=== PATIENT | male | born 1980 | race African-American/Black ===

== ENCOUNTER 2018-11-17 04:44 | Emergency (ER) | payer SELFPAY ==
[2018-11-17 05:23] VITALS: BMI 25.8
[2018-11-17] MEDS ORDERED: SODIUM CHLORIDE 1,000 ML IV STA (05:32)
[2018-11-17] MEDS ORDERED: ONDANSETRON 4 MG/2 ML VIAL IVPUSH ONE (05:32)
[2018-11-17] MEDS ORDERED: ACETAMINOPHEN 1000 MG/100 ML VIAL (NON FORMULARY) IVPB ONE (05:33)
[2018-11-17] MEDS ORDERED: FAMOTIDINE 20 MG/50 ML IVPB 20 MG/50 ML MG IVPB ONE ×2 (05:33→05:50)
[2018-11-17] MEDS ORDERED: MAG HYDROX/AL HYDROX/SIMETH -MYLANTA- ORAL SUSPENSION PO ONE (05:34)
--- NOTE | 2018-11-17 05:43 | PDOC ---
History of Present Illness - General Chief Complaint: Pain Stated Complaint: ABD PAIN Time Seen by Provider: 11/17/18 05:22 History Source: Patient Exam Limitations: No Limitations - History of Present Illness Initial Comments: 37 yo m w a hx of GERD presents to the ER with intense LUQ abdominal pain associated with nausea and what he describes as black vomiting and diarrhea. he states that he felt like something was expanding in his stomach to the point where the pain was too much and he felt compelled to vomit. He reports that the pain does not radiate but just lingers in the LUQ. He says it is a sharp feeling that feels hot. He rates the pain as 8/10. He says he has been experiencing black diarrhea for nearly a month now but he came into the ED today because he was in so much pain and discomfort. He denies any recent fevers, chills, infections, chest pain, SOB, difficulty breathing, headache, blurry vision, dysuria, frequency, urgency, weakness, numbness, tingling or chills. PCP: None PSH: None reported Social Hx: Smokes 6 cigarettes a day. Drinks recreationally, victorino other substance usage. Allergies: NKA, NKDA Past History - Past Medical History Allergies/Adverse Reactions: Allergies Allergy/AdvReac Type Severity Reaction Status Date / Time No Known Allergies Allergy Verified 11/17/18 05:23 Home Medications: Ambulatory Orders NK [No Known Home Medication] 01/04/15 - Suicide/Smoking/Psychosocial Hx Smoking History: Current every day smoker Have you smoked in the past 12 months: Yes Number of Cigarettes Smoked Daily: 6 Information on smoking cessation initiated: No Hx Alcohol Use: Yes (Occasional) Drug/Substance Use Hx: No Substance Use Type: Alcohol Review of Systems - Review of Systems Able to Perform ROS?: Yes Comments:: CONSTITUTIONAL: Absent: fever, no chills, no fatigue EYES: Absent: visual changes ENT: Absent: ear pain, no sore throat CARDIOVASCULAR: Absent: chest pain, no palpitations RESPIRATORY: Absent: cough, no SOB GI: Present: Abdominal pain, nausea, vomiting, diarrhea Absent: no constipation GENITOURINARY: Absent: dysuria, no frequency, no hematuria MUSKULOSKELETAL: Absent: back pain, no arthralgia, no myalgia SKIN: Absent: rash NEURO: Absent: headache *Physical Exam - Vital Signs Last Vital Signs Temp Pulse Resp BP Pulse Ox 97.9 F 76 19 107/66 100 11/17/18 04:44 11/17/18 04:44 11/17/18 04:44 11/17/18 04:44 11/17/18 04:44 - Physical Exam Comments: GENERAL: Well-appearing, well-nourished. No apparent distress. HEENT: Normocephalic, atraumatic. PERRL, EOM intact. CARDIOVASCULAR: Normal S1, S2. Regular rate and rhythm. PULMONARY: No evidence of respiratory distress. Lungs clear to auscultation bilaterally. No wheezing, rales or rhonchi. ABDOMEN: Hyperactive bowel sounds. there is TTP in the LUQ. Abdomen is still soft and non -distended. EXTREMITIES: Normal ROM in all four extremities. No gross deformities. SKIN: Warm, dry. No rash NEUROLOGICAL: No focal neurological deficits. Rectal Exam: positive: normal rectal tone, heme positive stool, hemorrhoids, other (Significant diffuse rectal/anal tags vs hemorrhoids, vs warts). negative : heme negative stool, normal exam, decreased tone Moderate Sedation - Procedure Monitoring Vital Signs: Procedure Monitoring Vital Signs Temperature 97.9 F 11/17/18 04:44 Pulse Rate 76 11/17/18 04:44 Respiratory Rate 19 11/17/18 04:44 Blood Pressure 107/66 11/17/18 04:44 O2 Sat by Pulse Oximetry (%) 100 11/17/18 04:44 ED Treatment Course - LABORATORY CBC & Chemistry Diagram: 11/17/18 05:46 11/17/18 05:46 - RADIOLOGY Radiology Studies Ordered: Category Date Time Status CHEST - PA [RAD] Stat Radiology 11/17/18 05:41 Ordered KUB (KID UR & BLAD) [RAD] Stat Radiology 11/17/18 05:41 Ordered Medical Decision Making - Medical Decision Making 37 yo m w a hx of GERD presents to the ER with intense LUQ abdominal pain associated with nausea and what he describes as black vomiting and diarrhea. he states that he felt like something was expanding in his stomach to the point where the pain was too much and he felt compelled to vomit. He reports that the pain does not radiate but just lingers in the LUQ. He says it is a sharp feeling that feels hot. He rates the pain as 8/10. He says he has been experiencing black diarrhea for nearly a month now but he came into the ED today because he was in so much pain and discomfort. - VSS DDx IBNLT: gastroenteritis vs food poisoning, pancreatitis, upper vs lower GI bleed, crohns vs UC Plan: Labs, Urine, EKG, X-rays, +/- CTAP, analgesia, supportive treatment, heme occult, re-assess. Rectal exam: Significant tequila anal disease. Many warts vs hemorrhoids vs skin tags vs cauliflower like lesions. Stool is black in appearance. Heme occult cancelled because the specimen was "" - Nonetheless - the stool was indeed black in appearance. Will obtain CTAP. - Patient will be signed out to the day team. *DC/Admit/Observation/Transfer Diagnosis at time of Disposition: Abdominal pain - Discharge Dispostion Condition at time of disposition: Fair - Referrals Referrals: [facility] [place] [facility] at [place] [Provider Group] Alexis Martinez MD [Staff Physician] - - Patient Instructions - Post Discharge Activity
[2018-11-17] MEDS ORDERED: ACETAMINOPHEN INJECTION 100 ML IVPB ONE (05:50)
[2018-11-17] MEDS ORDERED: ONDANSETRON 4 MG/2 ML VIAL ONE (05:50)
[2018-11-17] MEDS ORDERED: MAG HYDROX/AL HYDROX/SIMETH 30 ML UNIT-DOSE CUP ONE (05:50)
[2018-11-17 05:52] LABS: BASO % 0.3 % (0-2.0); EOS % 2.1 % (0-4.5); HEMATOCRIT 38.8 % (35.4-49); HEMOGLOBIN 13.5 GM/dL (11.7-16.9); LYMPH % 32.6 % (8-40); MCH 29.5 pg (25.7-33.7); MCHC 34.9 g/dl (32.0-35.9); MEAN CELL VOLUME 84.4 fl (80-96); PLATELET COUNT 249 K/MM3 (134-434); RBC 4.59 M/mm3 (4.00-5.60); RDW 13.8 % (11.9-15.9); WHITE BLOOD COUNT 4.1 K/mm3 (4.0-10.0)
--- NOTE | 2018-11-17 06:19 | PDOC ---
Attending Attestation - Resident Resident Name: Bethel Caldwell - ED Attending Attestation I have performed the following: I have examined & evaluated the patient, The case was reviewed & discussed with the resident, I agree w/resident's findings & plan, Exceptions are as noted - HPI HPI: 11/17/18 06:19 37 yo male with h/o n/v and dark stool. h/o GERD hasnt had endoscopy in the past. has been happening for one month intermittently. here today because episode bad and co upper abd pain. does use thc, no f/c . no mod factors. denies feeling lightheaded. no f/c reports dark black stool. denies peptobismol, or maalox. 11/17/18 07:00 11/17/18 07:03 - Physicial Exam PE: 11/17/18 07:04 awake alert lungs clear bilaterally heart rrr no mrg abd soft mild luq, epigastric ttp. no rebound no guarding. rectal with recta skin tags/ warts. skin warm and dry. - Medical Decision Making 11/17/18 07:04 differential anemia, gi bleed. peptic ulcer. disease. plan cbc lytes ct a/p. pt may require admission obs for serial h/h h/ h stable protonix given. will see GI on admission. ct a/p pending signed out to oncoming attending dr soto. Heart Score/ECG Review #1 General ECG Interpretation: Sinus Rhythm, Normal Rate (66), Normal Intervals, No acute ischemic changes
[2018-11-17 06:25] LABS: ALBUMIN 3.9 g/dl (3.4-5.0); ALK PHOS 68 U/L (45-117); ANION GAP 5 MMOL/L (8-16); BILIRUBIN,TOTAL 0.4 mg/dL (0.2-1); BLOOD UREA NITROGEN 10 mg/dL (7-18); CHLORIDE 106 mmol/L (98-107); CO2 30 mmol/L (21-32); CREATININE 0.7 mg/dL (0.55-1.3); GLUCOSE,RANDOM 104 mg/dL (74-106); LIPASE 170 U/L (73-393); POTASSIUM 3.6 mmol/L (3.5-5.1); SGOT/AST 19 U/L (15-37); SGPT/ALT 24 U/L (13-61); SODIUM 142 mmol/L (136-145)
[2018-11-17] MEDS ORDERED: morphine CARPU-JECT 4 MG/1 ML DISP.SYRIN IVPUSH ONE (07:07)
[2018-11-17] MEDS ORDERED: morphine SULFATE 4 MG/ML VIAL ONE (07:34)
--- NOTE | 2018-11-17 08:03 | PDOC ---
*Physical Exam - Vital Signs Last Vital Signs Temp Pulse Resp BP Pulse Ox 97.9 F 76 19 107/66 100 11/17/18 04:44 11/17/18 04:44 11/17/18 04:44 11/17/18 04:44 11/17/18 04:44 - Physical Exam Comments: 11/17/18 08:00 Patient admits to symptoms on/off for over a month, usually self remitting after a day and after pepcid and marijuana. He continues to feel nauseous with LUQ abd pain. CT abd/pelvis w cont shows minimally thickened descending and sigmoid colon possibly indicative of colitis, however there is no leukocytosis, left shift anemia or cmp abnormality. stool occult resent will reassess after mylanta, famotidine, iv tylenol. Gastrointestinal/Abdominal: positive: Normal Bowel Sounds, Tender (LUQ), Flat, Soft. negative: Guarding, Mass Rectal Exam: positive: heme negative stool, normal rectal tone, other (skin tags. empty vault) ED Treatment Course - LABORATORY CBC & Chemistry Diagram: 11/17/18 05:46 11/17/18 05:46 - ADDITIONAL ORDERS Additional order review: Laboratory Results 11/17/18 11/17/18 06:05 05:46 Sodium 142 Potassium 3.6 Chloride 106 Carbon Dioxide 30 Anion Gap 5 L BUN 10 Creatinine 0.7 Creat Clearance w eGFR > 60 Random Glucose 104 Calcium 9.0 Total Bilirubin 0.4 AST 19 ALT 24 Alkaline Phosphatase 68 C-Reactive Protein 0.4 H Total Protein 7.0 Albumin 3.9 Lipase 170 Stool Occult Blood Cancelled 11/17/18 05:46 RBC 4.59 MCV 84.4 MCHC 34.9 RDW 13.8 MPV 7.0 L Neutrophils % 60.0 Lymphocytes % 32.6 D Monocytes % 5.0 Eosinophils % 2.1 D Basophils % 0.3 - Medications Given in the ED: ED Medications Discontinued Medications Generic Name Dose Route Start Last Admin Trade Name Freq PRN Reason Stop Dose Admin Acetaminophen 1,000 mg 11/17/18 05:33 11/17/18 06:01 Ofirmev Injection - IVPB 11/17/18 05:34 1,000 mg ONCE ONE Administration Al Hydroxide/Mg Hydroxide 30 ml 11/17/18 05:34 11/17/18 06:01 Mylanta Suspension - PO 11/17/18 05:35 30 ml ONCE ONE Administration Sodium Chloride 1,000 mls @ 1,000 mls/hr 11/17/18 05:32 11/17/18 06:00 Normal Saline - IV 11/17/18 06:31 1,000 mls/hr ASDIR STA Administration Famotidine/Sodium Chloride 20 mg in 50 mls @ 100 mls/hr 11/17/18 05:33 06:01 Pepcid 20 Mg Premixed Ivpb - IVPB 11/17/18 06:02 100 mls/hr ONCE ONE Administration Morphine Sulfate 4 mg 11/17/18 07:07 11/17/18 07:37 Morphine Injection - IVPUSH 11/17/18 07:08 4 mg ONCE ONE Administration Ondansetron HCl 4 mg 11/17/18 05:32 11/17/18 06:01 Zofran Injection IVPUSH 11/17/18 05:33 4 mg ONCE ONE Administration *DC/Admit/Observation/Transfer Diagnosis at time of Disposition: Abdominal pain Qualifiers: Abdominal location: left upper quadrant Qualified Code(s): R10.12 - Left upper quadrant pain GERD (gastroesophageal reflux disease) Qualifiers: Esophagitis presence: esophagitis presence not specified Qualified Code(s): K21.9 - Gastro-esophageal reflux disease without esophagitis - Discharge Dispostion Disposition: HOME Condition at time of disposition: Stable Decision to Admit order: No - Prescriptions Prescriptions: Mag Hydrox/Al Hydrox/Simeth [Mylanta *Suspension*] 30 ml PO Q6H #20 cup Pantoprazole Sodium [Protonix] 40 mg PO DAILY #14 tablet.dr - Referrals Ref[place]: [facility] [place] [facility] [place] [Provider Group] Alexis Martinez MD [Staff Physician] - - Patient Instructions Additional Instructions: Your abdominal pain is likely caused by reflux since your CT scan of abdomen/ pelvis was negative, stool was negative for blood and pain was relieved by medications that treat reflux/gastritis. We prescribed you 2 medications, please pick them up form the pharmacy: Protonix: take one a day Mylanta: take every 6 hours if needed You can take over the counter tylenol for pain as needed WE advise your to eat less fast food and eat more fiber rich food like fruit, vegetables and whole grain. In you paperwork you will find a referral to a giant tire repairer Dr Martinez and to a primary care clinic. please follow up with both within a week Please return to ED if you develop fevers, chills, severe pain or bleeding - Post Discharge Activity
--- NOTE | 2018-11-17 08:18 | PDOC ---
*Physical Exam - Vital Signs Last Vital Signs Temp Pulse Resp BP Pulse Ox 97.9 F 76 19 107/66 100 11/17/18 04:44 11/17/18 04:44 11/17/18 04:44 11/17/18 04:44 11/17/18 04:44 ED Treatment Course - LABORATORY CBC & Chemistry Diagram: 11/17/18 05:46 11/17/18 05:46 - ADDITIONAL ORDERS Additional order review: Laboratory Results 11/17/18 11/17/18 11/17/18 07:30 06:05 05:46 Sodium 142 Potassium 3.6 Chloride 106 Carbon Dioxide 30 Anion Gap 5 L BUN 10 Creatinine 0.7 Creat Clearance w eGFR > 60 Random Glucose 104 Calcium 9.0 Total Bilirubin 0.4 AST 19 ALT 24 Alkaline Phosphatase 68 C-Reactive Protein 0.4 H Total Protein 7.0 Albumin 3.9 Lipase 170 Stool Occult Blood Negative Cancelled 11/17/18 05:46 RBC 4.59 MCV 84.4 MCHC 34.9 RDW 13.8 MPV 7.0 L Neutrophils % 60.0 Lymphocytes % 32.6 D Monocytes % 5.0 Eosinophils % 2.1 D Basophils % 0.3 - Medications Given in the ED: ED Medications Discontinued Medications Generic Name Dose Route Start Last Admin Trade Name Freq PRN Reason Stop Dose Admin Acetaminophen 1,000 mg 11/17/18 05:33 11/17/18 06:01 Ofirmev Injection - IVPB 11/17/18 05:34 1,000 mg ONCE ONE Administration Al Hydroxide/Mg Hydroxide 30 ml 11/17/18 05:34 11/17/18 06:01 Mylanta Suspension - PO 11/17/18 05:35 30 ml ONCE ONE Administration Sodium Chloride 1,000 mls @ 1,000 mls/hr 11/17/18 05:32 11/17/18 06:00 Normal Saline - IV 11/17/18 06:31 1,000 mls/hr ASDIR STA Administration Famotidine/Sodium Chloride 20 mg in 50 mls @ 100 mls/hr 11/17/18 05:33 06:01 Pepcid 20 Mg Premixed Ivpb - IVPB 11/17/18 06:02 100 mls/hr ONCE ONE Administration Morphine Sulfate 4 mg 11/17/18 07:07 11/17/18 07:37 Morphine Injection - IVPUSH 11/17/18 07:08 4 mg ONCE ONE Administration Ondansetron HCl 4 mg 11/17/18 05:32 11/17/18 06:01 Zofran Injection IVPUSH 11/17/18 05:33 4 mg ONCE ONE Administration Medical Decision Making - Medical Decision Making 11/17/18 08:16 I received this patient on sign out Briefly, he presents with severe abdominal pain pt crying and writhing in pain Pain has been intermittent and associated with vomiting (black emesis) no fevers or chills Awaiting CT DATE OF SERVICE: 2018-11-17 07:16:18 IMAGES: [id number] EXAM: CT ABDOMEN AND PELVIS WITH CONTRAST Minimally thickened descending colon and sigmoid colon, possibly colitis. Thickened versus underdistended ascending and transverse colon. No bowel obstruction, diverticulitis, free fluid or free air. Normal diameter appendix containing minimal fluid proximally. Unremarkable pancreas, kidneys and gallbladder. Small umbilical hernia containing fat. Pt was given Morphine, Maalox, Pepcid Will reassess how he is feeling May need to stay 11/17/18 11:46 Pt feels better Appointment made for Dr Dimas *DC/Admit/Observation/Transfer Diagnosis at time of Disposition: GERD (gastroesophageal reflux disease) Abdominal pain Qualifiers: Abdominal location: left upper quadrant Qualified Code(s): R10.12 - Left upper quadrant pain - Discharge Dispostion Disposition: HOME Condition at time of disposition: Stable - Prescriptions Prescriptions: Mag Hydrox/Al Hydrox/Simeth [Mylanta *Suspension*] 30 ml PO Q6H #20 cup Pantoprazole Sodium [Protonix] 40 mg PO DAILY #14 tablet.dr - Referrals Referrals: [facility] [place] [facility] at [place] [Provider Group] Alexis Martinez MD [Staff Physician] - - Patient Instructions Additional Instructions: Your abdominal pain is likely caused by reflux since your CT scan of abdomen/ pelvis was negative, stool was negative for blood and pain was relieved by medications that treat reflux/gastritis. We prescribed you 2 medications, please pick them up form the pharmacy: Protonix: take one a day Mylanta: take every 6 hours if needed You can take over the counter tylenol for pain as needed WE advise your to eat less fast food and eat more fiber rich food like fruit, vegetables and whole grain. In you paperwork you will find a referral to a special needs caregiver Dr Martinez and to a primary care clinic. please follow up with both within a week Please return to ED if you develop fevers, chills, severe pain or bleeding - Post Discharge Activity
[2018-11-17 08:51] LABS: ERYTHROCYTE SEDIMENTATION RATE 8 mm/hr (0-10)
[2018-11-17 11:35] VITALS: BP 112/70; PULSE 70; TEMP 97.8
--- NOTE | 2018-11-17 15:05 | EKG ---
Test Reason : Blood Pressure : / mmHG Vent. Rate : 066 BPM Atrial Rate : 066 BPM P-R Int : 170 ms QRS Dur : 088 ms QT Int : 400 ms P-R-T Axes : 056 032 045 degrees QTc Int : 419 ms NORMAL SINUS RHYTHM WITH SINUS ARRHYTHMIA NORMAL ECG NO PREVIOUS ECGS AVAILABLE Confirmed by Balaji Castro MD ([id number]) on 11/17/2018 3:05:00 PM Referred By: Confirmed By:Baljai Castro MD
== END 2018-11-17 11:55 | disposition home or self-care (01) ==
LOC: JER 04:44
PROC: 3E0337Z Introduction of Electrolytic and Water Balance Substance into Peripheral Vein, Percutaneous Approach (ICD-10-PCS; principal; 2018-11-17)
PROC: 3E033GC Introduction of Other Therapeutic Substance into Peripheral Vein, Percutaneous Approach (ICD-10-PCS; 2018-11-17)
PROC: 3E033GC Introduction of Other Therapeutic Substance into Peripheral Vein, Percutaneous Approach (ICD-10-PCS; 2018-11-17)
PROC: 3E033NZ Introduction of Analgesics, Hypnotics, Sedatives into Peripheral Vein, Percutaneous Approach (ICD-10-PCS; 2018-11-17)
PROC: 3E033NZ Introduction of Analgesics, Hypnotics, Sedatives into Peripheral Vein, Percutaneous Approach (ICD-10-PCS; 2018-11-17)
DX: K21.9 Gastro-esophageal reflux disease without esophagitis (principal)
CPT/HCPCS: 36415; 74177-TC; 80053; 82272; 83690; 85025; 85651; 86140; 93005; 93010; 99283-25; J0131; J7030